=== PATIENT | female | born 1985 | race Caucasian/White ===

== ENCOUNTER 2018-03-18 15:52 | Outpatient (CLI) | payer OTHER, BC ==
[~2018-03-18] VITALS: Ht 160 cm; Wt 82.2 kg
[~2018-03-18 15:52] MED LIST: ACET325T38 PO; ACHYD1T PO; BIRTH CONTROL PILL PO; CPR500T PO; DCS100C PO; DOCU100C37 PO; HYDR-3583 PO; IBP800T PO; IBUP-1780 PO; METR500T PO; NITR100C10 PO; OXYC-465 PO; PNV1TABL81 PO; PREN1TAB39 PO
[2018-03-18 16:00] VITALS: BP 124/70
[2018-03-18] MEDS ORDERED: D5 LR IV SOLUTION 1,000 ML IV ONE (16:00)
[2018-03-18] MEDS: D5 LR IV SOLUTION 1,000 ML IV SCH ×4 (16:15→22:35)
[2018-03-18] MEDS ORDERED: BETAMETHASONE ACE/NA PHOS 6 MG/ML (CELESTONE SOLUSPAN) ONE (16:46)
[2018-03-18] MEDS ORDERED: BETAMETHASONE ACE/NA PHOS 6 MG/ML (CELESTONE SOLUSPAN) IM SCH (17:00)
[2018-03-18 17:07] LABS: BASOPHILS % (AUTO) 0 % (0-10); EOSINOPHILS # (AUTO) 0.1 10^3/uL (0.0-0.3); EOSINOPHILS % (AUTO) 1 % (0-10); HEMATOCRIT 32 % (35-52); HEMOGLOBIN 10.9 G/DL (11.5-16.0); LYMPHOCYTES # (AUTO) 1.3 X 10^3 (1.0-4.0); LYMPHOCYTES % (AUTO) 12 % (12-44); MEAN CORPUSCULAR HEMOGLOBIN 31 PG (25-34); MEAN CORPUSCULAR HGB CONC 34 G/DL (32-36); MEAN CORPUSCULAR VOLUME 89 FL (80-99); MEAN PLATELET VOLUME 12.6 FL (7.4-10.4); MONOCYTES # (AUTO) 0.8 X 10^3 (0.0-1.0); MONOCYTES % (AUTO) 7 % (0-12); NEUTROPHILS # (AUTO) 8.8 X 10^3 (1.8-7.8); NEUTROPHILS % (AUTO) 81 % (42-75); PLATELET COUNT 168 10^3/uL (130-400); RED BLOOD COUNT 3.55 10^6/uL (4.35-5.85); RED CELL DISTRIBUTION WIDTH 12.7 % (10.0-14.5); WHITE BLOOD COUNT 10.8 10^3/uL (4.3-11.0)
[2018-03-18 17:08] LABS: BILIRUBIN,URINE NEGATIVE (NEGATIVE); CLARITY,URINE CLEAR; COLOR,URINE YELLOW; GLUCOSE, URINE (UA) NEGATIVE (NEGATIVE); KETONES,URINE NEGATIVE (NEGATIVE); LEUKOCYTE ESTERASE ,URINE NEGATIVE (NEGATIVE); NITRITE,URINE NEGATIVE (NEGATIVE); PH,URINE 7 (5-9); PROTEIN,URINE NEGATIVE (NEGATIVE); UROBILINOGEN,URINE NORMAL (NORMAL)
[2018-03-18 17:23] LABS: BACTERIA,URINE TRACE /HPF; SQUAMOUS EPITHELIAL CELL,UR RARE /HPF; WBC,URINE 0-2 /HPF
--- NOTE | 2018-03-18 17:47 | History & Physical ---
History and Physical Date Seen by Provider: Mar 18, 2018 Time Seen by Provider: 17:42 This patient is a 33-year-old gravid white female who has had 3 deliveries all at 35-36 weeks gestation. She was seen earlier on this date in clinic for routine OB follow-up. She was complaining of occasional contraction. Her that her contractions increased she was returned to the clinic for evaluation and found be scott every 2-5 minutes. Her cervix was quite a centimeter dilated and thinned out 50 percent. She was sent to labor and delivery for evaluation and management. Patient currently continues to contract somewhat less regularly but more vigorously every 2-5 minutes. Her cervix is a little more than a centimeter dilated now and still 50 percent effaced. The presenting part is very high. Patient did have an ultrasound on this date in my clinic that showed an DARRELL of 227. Patient denies rupture membranes or bleeding. Allergies are to morphine Medications are vitamins Medical social and surgical histories are per the antepartum record HEENT exam is normal Neck is supple no lymphadenopathy no thyromegaly Abdomen is gravid soft nontender nondistended Extremities show no clubbing cyanosis. There is no Homans sign. Pelvic exam shows a cervix low more than a centimeter dilated and about 50 percent. Cervix is somewhat anterior very soft. The presenting part is not palpable. Laboratory Tests 03/18/18 16:15 Assessment and plan labor at 33 weeks' gestation in a patient with labor and delivery 3. She had been counseled regarding use of prophylactic progesterone which she declined. She does continue to contract in spite of hydration. She has been given a single dose of betamethasone at 12 mg and plan would be to repeat that in 24 hours. Continue observation at this point. If she demonstrates progressive cervical change then we would entertain tocolyse's with magnesium and consideration for transfer to location with electric tool repairer and/or NICU care. This is been discussed and explained to the patient who accepts understands and agrees labor at 33 weeks gestation Allergies and Home Medications Allergies Coded Allergies: morphine (Unverified Adverse Reaction, Mild, ITCHING, 05/19/12) Home Medications Acetaminophen 325 Mg Tablet, 500 MG PO PRN PRN for PAIN, (Reported) Docusate Sodium 100 Mg Capsule, 100 MG PO BID Prescribed by: RANJAN ENGLISH on 03/22/15 0722 Ibuprofen 800 Mg Tablet, 800 MG PO Q6H Prescribed by: RANJAN ENGLISH on 03/22/15721 Oxycodone HCl/Acetaminophen 1 Each Tablet, 1-2 TAB PO Q4H PRN for PAIN Prescribed by: RANJAN ENGLISH on 03/22/15721 Pnv No.122/Iron/Folic Acid 1 Each Tablet, 1 EACH PO DAILY, (Reported) Patient Home Medication List Home Medication List Reviewed: Yes RANJAN HERNANDEZ MD Mar 18, 2018 5:47 pm
[2018-03-18 18:50] VITALS: BP 112/55
[2018-03-18 20:15] VITALS: BP 120/66
[2018-03-19 00:40] VITALS: BP 107/55
[2018-03-19] MEDS ORDERED: CALCIUM CARBONATE 500 MG (TUMS) TAB.CHEW PO PRN (00:45)
[2018-03-19] MEDS: D5 LR IV SOLUTION 1,000 ML IV SCH (05:15)
[2018-03-19 07:54] VITALS: BP 106/61
[2018-03-19] MEDS ORDERED: TERBUTALINE INJ 1 MG/ML (BRETHINE) AMP SC ONE (08:00)
--- NOTE | 2018-03-19 08:00 | Progress Note-Standard ---
Standard Progress Note Progress Notes/Assess & Plan Date Seen by a Provider: Mar 19, 2018 Time Seen by a Provider: 07:58 Progress/Assessment & Plan This patient complains of persistent contractions however the contractions have waxed and waned through the night. She reports that generally they are no more intense and no more frequently than what they have been that seems that they have tendency to lessen over time. Patient denies rupture membranes or bleeding. She does feel baby moving. Vital Signs 03/19/18 00:40 Temp 98.4 Pulse 80 Resp 18 B/P (MAP) 107/55 (72) O2 Delivery Room Air Vital signs are stable. Patient is afebrile. The abdomen gravid soft nontender nondistended Extreme show clubbing cyanosis. There is no Homans sign. Pelvic exam shows a cervix that is low more than 1 cm dilated but not quite two cm cervix is thinned out about 50 percent. Presentation is vertex at the -2 to -3 station Assessment and plan labor with little change of her cervix in the period of observation here. Plan will be for single dose of terbutaline. This has affected less than 2 contractions we will discharge her home with precautions for return to clinic. Final Diagnosis labor 33 weeks gestation RANJAN HERNANDEZ MD Mar 19, 2018 8:00 am
[2018-03-19] MEDS ORDERED: [UNRECOGNIZED DRUG - OTHER] IM (08:06)
--- NOTE | 2018-03-19 08:08 | Discharge Instructions ---
Discharge Instructions Discharge Medications New, Converted or Re-Newed RX: RX on Chart Patient Instructions Patient Instructions: As directed Return to The Hospital For: As directed Activity & Diet Discharge Diet: No Restrictions Activity as Tolerated: Yes Orders-Post D/C & Referrals Call to make follow up appt. for patient in 1 week in my clinic RANJAN HERNANDEZ MD Mar 19, 2018 8:08 am
[2018-03-19] MEDS ORDERED: TERBUTALINE INJ 1 MG/ML (BRETHINE) AMP ONE (08:12)
[2018-03-19 11:30] VITALS: BP 106/61
[2018-03-19] MEDS ORDERED: BETAMETHASONE ACE/NA PHOS 6 MG/ML (CELESTONE SOLUSPAN) IM SCH (17:00)
== END 2018-03-19 11:30 | disposition home or self-care (01) ==
LOC: WSo 15:52 → LDRP 15:52 → WSo 03-19 11:30
PROVIDERS: ATTEND Obstetrics & Gynecology
DX: O60.03 Preterm labor without delivery, third trimester (principal); Z3A.33 33 weeks gestation of pregnancy
CPT/HCPCS: 36415; 81000; 85025; 96360; 96361; 96372; 99214

== ENCOUNTER 2018-03-19 16:28 | Outpatient (CLI) | payer OTHER ==
[~2018-03-19 16:28] MED LIST changes: +[UNRECOGNIZED DRUG - OTHER] IM
[2018-03-19] MEDS ORDERED: BETAMETHASONE ACE/NA PHOS 6 MG/ML (CELESTONE SOLUSPAN) IM ONE (16:47)
[2018-03-19] MEDS ORDERED: BETAMETHASONE ACE/NA PHOS 6 MG/ML (CELESTONE SOLUSPAN) ONE ×2 (17:00→17:05)
== END 2018-03-19 17:09 | disposition home or self-care (01) ==
LOC: WSo 16:28 → EDSTATUS 16:32 → WSo 16:32 → EDSTATUS 17:23 → WSo 17:23
PROVIDERS: ATTEND Obstetrics & Gynecology
DX: Z87.51 Personal history of pre-term labor (principal); Z3A.33 33 weeks gestation of pregnancy
CPT/HCPCS: 96372

== ENCOUNTER 2018-04-16 08:43 | Inpatient (IN) | payer OTHER ==
[2018-04-16] VITALS (31 sets, daily range): BP systolic 104–152; BP diastolic 51–81
[~2018-04-16] VITALS: Ht 160 cm; Wt 82.2 kg
[2018-04-16] MEDS ORDERED: D5 LR IV SOLUTION 1,000 ML IV ONE (08:57)
[2018-04-16] MEDS: D5 LR IV SOLUTION 1,000 ML IV SCH ×2 (09:10→12:28)
[2018-04-16] MEDS ORDERED: OXYTOCIN/NORMAL SALINE 500 ML IV SCH ×2 (09:30→15:39)
[2018-04-16] MEDS ORDERED: DOCU-143 PO (09:36)
[2018-04-16] MEDS ORDERED: IBUP-1780 PO (09:36)
[2018-04-16] MEDS ORDERED: OXYC1TAB87 PO (09:36)
[2018-04-16 09:37] LABS: BASOPHILS # (AUTO) 0.1 10^3/uL (0.0-0.1); BASOPHILS % (AUTO) 0 % (0-10); EOSINOPHILS # (AUTO) 0.1 10^3/uL (0.0-0.3); EOSINOPHILS % (AUTO) 0 % (0-10); HEMATOCRIT 32 % (35-52); HEMOGLOBIN 10.6 G/DL (11.5-16.0); LYMPHOCYTES # (AUTO) 1.7 X 10^3 (1.0-4.0); LYMPHOCYTES % (AUTO) 14 % (12-44); MEAN CORPUSCULAR HEMOGLOBIN 29 PG (25-34); MEAN CORPUSCULAR HGB CONC 33 G/DL (32-36); MEAN CORPUSCULAR VOLUME 88 FL (80-99); MEAN PLATELET VOLUME 12.8 FL (7.4-10.4); MONOCYTES # (AUTO) 0.8 X 10^3 (0.0-1.0); MONOCYTES % (AUTO) 7 % (0-12); NEUTROPHILS # (AUTO) 9.6 X 10^3 (1.8-7.8); NEUTROPHILS % (AUTO) 79 % (42-75); PLATELET COUNT 175 10^3/uL (130-400); RED BLOOD COUNT 3.66 10^6/uL (4.35-5.85); RED CELL DISTRIBUTION WIDTH 13.7 % (10.0-14.5); WHITE BLOOD COUNT 12.2 10^3/uL (4.3-11.0)
--- NOTE | 2018-04-16 09:37 | Discharge Instructions ---
Discharge Instructions Discharge Medications New, Converted or Re-Newed RX: RX on Chart Patient Instructions Patient Instructions: As directed Return to The Hospital For: As directed Activity & Diet Discharge Diet: No Restrictions Activity as Tolerated: No Orders-Post D/C & Referrals Follow Up Appt: Call to make follow up appt. for patient in 4 weeks. Activity Per routine post vaginal delivery instructions. Diet as tolerated Patient may shower or tub bathe as desired. RANJAN HERNANDEZ MD Apr 16, 2018 9:37 am
--- NOTE | 2018-04-16 09:45 | History & Physical ---
History and Physical Date Seen by Provider: Apr 16, 2018 Time Seen by Provider: 09:43 This patient is a 32-year-old ectopic 1 white female with an EDC of 11 [phone] putting her at 37+ weeks gestation. She presented with complaint of contractions consistent with labor. She feels pressure. She denies ruptured membranes or bleeding. She's had no problems with this. Follow her prior delivery 7 weeks gestation. Her GBS culture after 35 weeks gestation was negative. Allergies are to morphine sulfate which causes itching Medications are vitamins And Zyrtec and B12 Medical social and surgical histories are per the antepartum record HEENT exam is normal Neck is supple no lymphadenopathy no thyromegaly Abdomen is gravid soft nontender nondistended Extremities show no clubbing or cyanosis. There is no Homans sign. Pelvic exam shows a cervix initially 4 cm change to 5 cm and about an hour. She 70 percent effaced -1 to -2 station or tech presentation with intact membranes amniotomy was performed releasing clear fluid. monitor shows contractions every 2-4 minutes and a normal heart rate pattern Assessment and plan term at 37+ weeks' gestation in active labor. We anticipate a vaginal delivery. Allergies and Home Medications Allergies Coded Allergies: morphine (Unverified Adverse Reaction, Mild, ITCHING, 05/19/12) Home Medications Docusate Sodium 100 Mg Capsule, 100 MG PO BID Prescribed by: RANJAN ENGLISH on 04/16/18935 Ibuprofen 800 Mg Tablet, 800 MG PO Q6H PRN for PAIN Prescribed by: RANJAN ENGLISH on 04/16/18935 Oxycodone HCl/Acetaminophen 1 Each Tablet, 1 EACH PO Q4H PRN for PAIN-MODERATE Prescribed by: RANJAN ENGLISH on 04/16/18935 Pnv No.122/Iron/Folic Acid 1 Each Tablet, 1 EACH PO DAILY, (Reported) [Betamethasone Sod Phos/Acetate] 6 MG/ML SUSP, 12 MG IM Q24HR give 12 mg IM for second dose Prescribed by: RANJAN ENGLISH on 03/19/18 08 Patient Home Medication List Home Medication List Reviewed: Yes RANJAN HERNANDEZ MD Apr 16, 2018 9:45 am
[2018-04-16] MEDS ORDERED: ONDANSETRON 4 MG/2 ML (SDV) Z0FRAN ONE (13:40)
[2018-04-16] MEDS ORDERED: LIDOCAINE/EPI 2% 1:200,00 (XYLOCAINE) 10 ML VIAL ONE (13:57)
[2018-04-16] MEDS ORDERED: ONDANSETRON 4 MG/2 ML (SDV) Z0FRAN IVP NR (14:00)
[2018-04-16] MEDS ORDERED: BENZOCAINE/MENTHOL (DERMOPLAST) 56 ML CAN TP PRN (15:45)
[2018-04-16] MEDS ORDERED: MEASLES,MUMPS,RUBELLA 1 EA INJ SC ONE (15:45)
[2018-04-16] MEDS ORDERED: ONDANSETRON 4 MG/2 ML (SDV) Z0FRAN IVP PRN (15:45)
[2018-04-16] MEDS ORDERED: TETANUS,DIPTH,PERTUSS P/F (BOOSTRIX) 0.5 ML VIAL IM ONE (15:45)
[2018-04-16] MEDS ORDERED: oxyCODONE/APAP 5/325MG (PERCOCET 5) TABLET PO PRN (15:45)
[2018-04-16] MEDS: DOCUSATE SODIUM 100 MG (COLACE) CAP PO SCH (19:52)
[2018-04-16] MEDS: KETOROLAC 30 MG/ML VIAL IV SCH (19:52)
--- NOTE | 2018-04-16 23:25 | OPERATIVE REPORT ---
DATE OF SERVICE: 04/16/2018 The patient delivered by term spontaneous vaginal delivery a viable male with Apgars of 1-7-7 at 1-5-10 minutes respectively, weight of 7 pounds and 4 ounces, cord blood gas with a pH of 7.20 and a time of 14:30. The was delivered over an intact perineum under no analgesia. The patient delivered the baby from about a -2 station to the perineum with three or four pushes. The infant was bulb suctioned on delivery of the head and again on completion of delivery. The was somewhat lethargic. Had initially good tone and reflexes, however, became a bit flaccid and when the cord became pulseless, cord doubly clamped and cut and the was passed to mom's abdomen just transiently as the infant failed to really have a good vigorous cry and was taken to the warmer for resusitation by the nurse Wilson, the pediatric nurse in attendance for delivery. Cord bloods were obtained. The placenta delivered very promptly spontaneously Slaughter. It was normal with a 3-vessel cord. The cervix, vagina, rectum, perineum were examined and found intact. The sponge and needle counts were correct on completion of the delivery. Estimated blood loss was less than 150 mL. The patient remained in the LDR. The baby remained in the LDR under the care of nurse Wilson. Job ID: [id number] DocumentID: [id number] Dictated Date: 04/16/2018 14:46:39 Shoe Reconditioner Date: 04/16/2018 23:25:28 Dictated By: RANJAN HERNANDEZ MD MTDD
[2018-04-17 00:45] VITALS: BP 120/74
[2018-04-17 04:15] VITALS: BP 118/79
[2018-04-17] MEDS: KETOROLAC 30 MG/ML VIAL IV SCH (04:16)
[2018-04-17] MEDS ORDERED: IBUPROFEN 800 MG (MOTRIN) TAB PO ONE (07:53)
[2018-04-17 08:10] VITALS: BP 113/71
[2018-04-17] MEDS: DOCUSATE SODIUM 100 MG (COLACE) CAP PO SCH ×2 (08:10→22:06)
--- NOTE | 2018-04-17 11:53 | Postpartum Progress Note ---
Note Note Day # 1 Subjective: Patient is without complaints. Covering for Dr. Diaz who has signed out this patient, NVD from yesterday Ambulating, voiding. Tolerating a regular diet without nausea or vomiting. Normal lochia. Pain is well controlled with oral pain medications. Objective: Vital Sign - Last 24 Hours 04/16/18 04/17/18 04/17/18 04/17/18 20:20 00:45 04:15 08:10 Temp 98.4 98.4 96.8 97.9 Pulse 86 68 72 69 Resp 18 18 18 18 B/P (MAP) 120/69 (86) 120/74 (89) 118/79 (92) 113/71 (85) O2 Delivery Room Air Room Air Physical Exam: General - Alert and oriented, no apparent distress Abdomen - Soft, appropriately tender to palpation, non-distended, fundus firm at umbilicus Extremities - no edema, negative Jumana's bilaterally Assessment: PPD 1 NVD Plan: Routine care. Encourage breast feeding. Encourage ambulation. Ferrous sulfate supplementation. Plan for discharge tomorrow Vitals - Labs Vital Signs - I&O Vital Signs Date Time Temp Pulse Resp B/P (MAP) Pulse Ox O2 Delivery O2 Flow Rate FiO2 04/17/18 08:10 97.9 69 18 113/71 (85) Room Air 04/17/18 04:15 96.8 72 18 118/79 (92) 04/17/18 00:45 98.4 68 18 120/74 (89) 04/16/18 20:20 98.4 86 18 120/69 (86) Room Air KRISHNA MACIAS DO Apr 17, 2018 11:53 am
[2018-04-17] MEDS: IBUPROFEN 800 MG (MOTRIN) TAB PO SCH ×2 (15:45→21:26)
[2018-04-17 16:00] VITALS: BP 112/72
[2018-04-17 22:00] VITALS: BP 99/60
[2018-04-18] MEDS: IBUPROFEN 800 MG (MOTRIN) TAB PO SCH ×3 (03:50→15:20)
[2018-04-18 03:51] VITALS: BP 128/79
[2018-04-18 08:55] VITALS: BP 125/67
[2018-04-18] MEDS: DOCUSATE SODIUM 100 MG (COLACE) CAP PO SCH (08:58)
--- NOTE | 2018-04-18 09:53 | Postpartum Progress Note ---
Note Note Day # 2 Subjective: Patient is without complaints. Ambulating, voiding. Tolerating a regular diet without nausea or vomiting. Normal lochia. Pain is well controlled with oral pain medications. Objective: Vital Sign - Last 24 Hours 04/17/18 04/17/18 04/18/18 04/18/18 16:00 22:00 03:51 08:55 Temp 98.1 97.8 97.8 98.4 Pulse 66 58 63 77 Resp 18 18 18 18 B/P (MAP) 112/72 (85) 99/60 (73) 128/79 (95) 125/67 (86) O2 Delivery Room Air Room Air Room Air Room Air Physical Exam: General - Alert and oriented, no apparent distress Abdomen - Soft, appropriately tender to palpation, non-distended, fundus firm at umbilicus Extremities - no edema, negative Jumana's bilaterally Assessment: PPD 2 NVD Plan: Routine care. Encourage breast feeding. Encourage ambulation. Ferrous sulfate supplementation. Plan for discharge today Vitals - Labs Vital Signs - I&O Vital Signs Date Time Temp Pulse Resp B/P (MAP) Pulse Ox O2 Delivery O2 Flow Rate FiO2 04/18/18 08:55 98.4 77 18 125/67 (86) Room Air 04/18/18 03:51 97.8 63 18 128/79 (95) Room Air 04/17/18 22:00 97.8 58 18 99/60 (73) Room Air 04/17/18 16:00 98.1 66 18 112/72 (85) Room Air KRISHNA MACIAS DO Apr 18, 2018 9:53 am
[2018-04-18 15:26] VITALS: BP 120/88
--- NOTE | 2018-04-21 14:39 | Physician Query-Anemia ---
Physician Query-Anemia Query to Physician: Provider's Document Request-Please contact global marketing manager listed on document for more information. Dear Provider, In cases where a patient has anemia and blood loss, the relief operator can never assume a cause and effect relationship. Please document the type of the anemia, if known, on this form as an addendum: *Please exercise your independent, professional judgement when responding. A specific answer is not anticipated or expected. Based on a review/Patient has: Hgb/Hct: Hgb-10.6 Hct-32 Estimated blood loss (mL): 150 Transfusion: No Type of anemia, if known: Anemia due to: Other Anemia, other (specify): Anemia secondary to If you have questions please contact: Traffic Technician: Ext: Thank you for your time and cooperation. Clinical Auto Dealership Porter/Traffic Technician This is a permanent part of the medical record DEBBIE GROSS Apr 21, 2018 14:39 KRISHNA MACIAS DO Apr 26, 2018 07:18
--- NOTE | 2018-04-22 16:16 | Physician Query-Final Dx ---
LOS ALVARADO 04/22/18 1616: Final Diagnosis Give Final Diagnosis Please give Final Diagnosis RANJAN HERNANDEZ MD 04/22/18 1721: Final Diagnosis Give Final Diagnosis 37 week spontaneous vaginal delivery LOS ALVARADO Apr 22, 2018 16:16 RANJAN HERNANDEZ MD Apr 22, 2018 17:21
--- OUTSIDE RECORDS SUMMARY | 2018-04-23 17:11 | XMS REPORT | Continuity of Care Document ---
Author Author Formerly [facility], [facility]–1983 [facility] Address Unknown Phone Unavailable Allergies Active Description Code Type Severity Reaction Onset Reported/Identified Relationship to Patient Clinical Status Yes MORPHINE MORPHINE MILD Yes MORPHINE MILD ITCHING Yes morphine [id number] Drug Allergy Mild ITCHING 05/19/2012 Medications There is no data. Problems Date Dx Coded Attending Type Code Diagnosis Diagnosed By 08/07/2011 Ot 644.21 08/07/2011 Ot V27.0 11/05/2011 Ot 717.3 11/05/2011 Ot 733.92 05/19/2012 Ot 614.6 05/19/2012 Ot 633.10 05/19/2012 Ot 752.11 06/11/2012 Ot 590.80 12/21/2012 V05.3 HEP B (ADULT) DX 12/21/2012 SAVANNA QUEVEDO DO V05.3 HEP B (ADULT) DX 07/29/2013 SAVANNA QUEVEDO DO V06.1 DTAP DX 02/11/2015 RANJAN HERNANDEZ MD Ot 644.03 THRT NORBERT LABOR-ANTEPART 03/21/2015 Ot 717.2 03/21/2015 Ot 717.3 03/21/2015 Ot V72.84 03/21/2015 Ot V74.8 03/21/2015 Ot 625.8 03/21/2015 Ot V72.63 03/21/2015 Ot V74.8 03/22/2015 RANJAN HERNANDEZ MD Ot 644.21 EARLY ONSET DELIVERY-DEL 03/22/2015 RANJAN HERNANDEZ MD Ot 664.01 DEL W 1 DEG LACERAT-DEL 03/22/2015 RANJAN HERNANDEZ MD Ot V23.41 PREG W HISTORY OF PRE-TERM LABOR 03/22/2015 RANJAN HERNANDEZ MD Ot V27.0 DELIVER-SINGLE LIVEBORN 04/24/2015 Ot 717.2 04/24/2015 Ot 717.3 04/24/2015 Ot V72.84 04/24/2015 Ot V74.8 04/24/2015 Ot 625.8 04/24/2015 Ot V72.63 04/24/2015 Ot V74.8 01/17/2016 Ot 717.2 DERANG POST MED MENISCUS 05/15/2016 W 715.16 OSTEOARTHROSIS, LOCALIZED, PRIMARY, INVOLVING LOWER LEG 05/15/2016 A 717.42 DERANGEMENT OF ANTERIOR HORN OF LATERAL MENISCUS 05/15/2016 W 717.6 LOOSE BODY IN KNEE 05/15/2016 W 727.05 OTHER TENOSYNOVITIS OR HAND AND WRIST 05/15/2016 W M17.12 UNILATERAL PRIMARY OSTEOARTHRITIS, LEFT KNEE 05/15/2016 A M23.242 DERANG OF ANT HORN OF LAT MENSC DUE TO OLD TEAR/INJ, L KNEE 05/15/2016 W M23.42 LOOSE BODY IN KNEE, LEFT KNEE 05/15/2016 W M65.9 SYNOVITIS AND TENOSYNOVITIS, UNSPECIFIED 03/19/2018 RANJAN HERNANDEZ MD, Ot Z3A.33 33 WEEKS GESTATION OF 03/19/2018 RANJAN HERNANDEZ MD, Ot Z87.51 PERSONAL HISTORY OF PRE-TERM LABOR 03/22/2018 RANJAN HERNANDEZ MD, Ot O60.03 LABOR WITHOUT DELIVERY, THIRD TR 03/22/2018 RANJAN HERNANDEZ MD, Ot Z3A.33 33 WEEKS GESTATION OF 03/23/2018 RANJAN HERNANDEZ MD, Ot Z3A.33 33 WEEKS GESTATION OF 03/23/2018 RANJAN HERNANDEZ MD, Ot Z87.51 PERSONAL HISTORY OF PRE-TERM LABOR 04/18/2018 RANJAN HERNANDEZ MD, Ot O80 ENCOUNTER FOR FULL-TERM UNCOMPLICATED DE 04/18/2018 RANJAN HERNANDEZ MD, Ot Z37.0 SINGLE LIVE 04/18/2018 RANJAN HERNANDEZ MD, Ot Z3A.37 37 WEEKS GESTATION OF Procedures Code Description Performed By Performed On 75.69 REPAIR OB LACERATION NEC 03/21/2015 [id number] DELIVERY OF PRODUCTS OF CONCEPTION, EXTE 04/16/2018 Results Test Result Range Thyroid Stimulating Hormone - 08/20/16 09:51 TSH 0.86 mIU/mL 0.32-5.00 Iron - 08/20/16 09:51 Iron 46 ug/dL 70-200 Mycoplasma - 05/18/17 14:58 Mycoplasma Negative Negative Complete blood count (CBC) with automated white blood cell (WBC) differential - 03/18/18 16:15 Blood leukocytes automated count (number/volume) 10.8 10*3/uL 4.3-11.0 Blood erythrocytes automated count (number/volume) 3.55 10*6/uL 4.35-5.85 Venous blood hemoglobin measurement (mass/volume) 10.9 g/dL 11.5-16.0 Blood hematocrit (volume fraction) 32 % 35-52 Automated erythrocyte mean corpuscular volume 89 [foz_us] 80-99 Automated erythrocyte mean corpuscular hemoglobin (mass per erythrocyte) 31 pg 25-34 Automated erythrocyte mean corpuscular hemoglobin concentration measurement ( mass/volume) 34 g/dL 32-36 Automated erythrocyte distribution width ratio 12.7 % 10.0-14.5 Automated blood platelet count (count/volume) 168 10*3/uL 130-400 Automated blood platelet mean volume measurement 12.6 [foz_us] 7.4-10.4 Automated blood neutrophils/100 leukocytes 81 % 42-75 Automated blood lymphocytes/100 leukocytes 12 % 12-44 Blood monocytes/100 leukocytes 7 % 0-12 Automated blood eosinophils/100 leukocytes 1 % 0-10 Automated blood basophils/100 leukocytes 0 % 0-10 Blood neutrophils automated count (number/volume) 8.8 10*3 1.8-7.8 Blood lymphocytes automated count (number/volume) 1.3 10*3 1.0-4.0 Blood monocytes automated count (number/volume) 0.8 10*3 0.0-1.0 Automated eosinophil count 0.1 10*3/uL 0.0-0.3 Automated blood basophil count (count/volume) 0.0 10*3/uL 0.0-0.1 [id number] - 03/18/18 16:15 [id number] SPECIMEN AVAILABLE NRG Complete urinalysis with reflex to culture - 03/18/18 16:30 Urine color determination YELLOW NRG Urine clarity determination CLEAR NRG Urine pH measurement by test strip 7 5-9 Specific gravity of urine by test strip 1.005 1.016- 1.022 Urine protein assay by test strip, semi-quantitative NEGATIVE NEGATIVE Urine glucose detection by automated test strip NEGATIVE NEGATIVE Erythrocytes detection in urine sediment by light microscopy NEGATIVE NEGATIVE Urine ketones detection by automated test strip NEGATIVE NEGATIVE Urine nitrite detection by test strip NEGATIVE NEGATIVE Urine total bilirubin detection by test strip NEGATIVE NEGATIVE Urine urobilinogen measurement by automated test strip (mass/volume) NORMAL NORMAL Urine leukocyte esterase detection by dipstick NEGATIVE NEGATIVE Automated urine sediment erythrocyte count by microscopy (number/high power field) NONE NRG Automated urine sediment leukocyte count by microscopy (number/high power field ) [HPF] NRG Bacteria detection in urine sediment by light microscopy TRACE NRG Squamous epithelial cells detection in urine sediment by light microscopy RARE NRG Crystals detection in urine sediment by light microscopy NONE NRG Casts detection in urine sediment by light microscopy NONE NRG Mucus detection in urine sediment by light microscopy NEGATIVE NRG Complete urinalysis with reflex to culture NO NRG Encounters ACCT No. Visit Date/Time Discharge Status Pt. Type Provider Facility Loc./Unit Complaint [id number] 07/29/2013 14:18:00 07/29/2013 23:59:59 CLS Outpatient SAVANNA QUEVEDO DO [id number] 12/21/2012 16:23:00 Document Registration [id number] 05/14/2017 09:45:21 05/14/2017 23:59:59 CLS Outpatient [id number] 05/18/2017 14:54:00 05/18/2017 23:59:00 DIS Outpatient Marimar Early [id number] 03/06/2017 09:53:00 03/06/2017 23:59:00 DIS Outpatient NELI SANTO [id number] 08/20/2016 09:47:00 08/20/2016 23:59:00 DIS Outpatient Marimar Early [id number] 05/15/2016 00:00:00 Document Registration [id number] 04/16/2018 08:43:00 04/18/2018 15:20:00 DIS Inpatient RANJAN HERNANDEZ MD [facility] [address] LDRP CONTRACTIONS [id number] 03/19/2018 16:28:00 03/19/2018 17:09:00 DIS Outpatient RANJAN HERNANDEZ MD [facility] [address] WSo BETAMETHASONE SOD PHOS/ACETATE [id number] 03/18/2018 15:52:00 03/19/2018 11:30:00 DIS Outpatient RANJAN HERNANDEZ MD [facility] [address] WSo CONTRACTIONS [id number] 03/21/2015 12:44:00 03/22/2015 20:35:00 DIS Inpatient RANJAN HERNANDEZ MD [facility] [address] LDRP LABOR [id number] 02/10/2015 20:38:00 02/11/2015 13:06:00 DIS Inpatient RANJAN HERNANDEZ MD [facility] [address] LDRP POSSIBLE LEAKING FLUID [id number] 06/09/2012 19:30:00 Document Registration [id number] 05/19/2012 11:17:00 Document Registration [id number] 05/17/2012 08:33:00 Document Registration [id number] 11/05/2011 05:38:00 Document Registration [id number] 11/03/2011 12:39:00 Document Registration [id number] 08/05/2011 07:30:00 Document Registration [id number] 10/28/2010 12:57:00 Document Registration
== END 2018-04-18 15:20 | disposition home or self-care (01) | DRG 807 ==
LOC: UNDOADMIN 08:43 → LDRP 08:43 → UNDODISIN 04-18 15:20
PROVIDERS: ADMIT Obstetrics & Gynecology; ATTEND Obstetrics & Gynecology
PROC: 10E0XZZ Delivery of Products of Conception, External Approach (ICD-10-PCS; principal; 2018-04-16)
DX: O99.02 Anemia complicating childbirth (principal); D64.9 Anemia, unspecified; Z3A.37 37 weeks gestation of pregnancy; Z37.0 Single live birth
CPT/HCPCS: 36415; 85025; 88307; 99212

== ENCOUNTER → 2020-12-27 | Outpatient (CLI) | payer OTHER ==
[~2020-12-27] MED LIST changes: +DOCU-143 PO; -OXYC-465 PO; +OXYC-556 PO; +OXYC1TAB87 PO
--- NOTE | 2020-12-27 15:34 | Diagnostic Imaging Report ---
INDICATION: History of pneumothorax, however previous studies are not available for comparison. Small caliber chest tube is seen over the left upper chest. There is no pneumothorax at this time. There is some mild left basilar atelectasis with a minimal mild left pleural fluid. Right lung is clear. There appears to be a left-sided rib fracture laterally, involving the 6th rib. IMPRESSION: No pneumothorax with small caliber left chest tube in place. Minimal left pleural fluid with some left basilar atelectasis. There appears to be a left-sided rib fracture laterally. Dictated by: Dictated on workstation # [id number]
== END ==
LOC: RAD 13:39
PROVIDERS: ATTEND Surgery
DX: J98.11 Atelectasis (principal); J81.1 Chronic pulmonary edema
CPT/HCPCS: 71046